=== PATIENT | female | born 1965 | race Hispanic/Latino ===

== ENCOUNTER 2022-12-20 09:53 | Day surgery (SDC) | payer OTHER ==
[~2022-12-20] VITALS: Ht 162.6 cm; Wt 74.1 kg
[2022-12-20] VITALS (9 sets, daily range): BP systolic 86–133; BP diastolic 61–99
[~2022-12-20 09:53] MED LIST: MULT-1250 PO
[2022-12-20] MEDS ORDERED: 0.9%NACL 1000ML 1,000 ML IV ONE (10:18)
[2022-12-20 11:10] LABS: HEMATOCRIT 46.1 % (36-48); MEAN CORPUSCULAR HGB CONC 32.3 g/dL (32.0-36.0); MEAN CORPUSCULAR VOLUME 89.7 fL (79-99); PLATELET COUNT (AUTO) 253 K/uL (130-400); RED BLOOD CELL COUNT(AUTO) 5.14 MIL/uL (4.00-5.50); WHITE BLOOD COUNT (AUTO) 6.2 K/uL (4.8-10.8)
[2022-12-20 11:19] LABS: CREATININE 0.7 mg/dL (0.5-1.5); POTASSIUM 3.7 mmol/L (3.5-5.1)
[2022-12-20 11:20] LABS: INR 0.94 (0.85-1.15); PROTHROMBIN TIME 10.3 SEC (9.6-11.6)
[2022-12-20 11:21] LABS: PARTIAL THROMBOPLASTIN TIME 27.3 SEC (26.3-35.5)
[2022-12-20 11:28] LABS: LYMPHOCYTES % (MANUAL) 28 % (22-44); MAN.DIFF COMMENT-IMPRESSION MANUAL DIFFERENTIAL; MONOCYTES % (MANUAL) 7 % (2-9); PLATELET MORPHOLOGY COMMENT ADEQUATE; SEGMENTED NEUTROPHILS % 65 % (40-70)
[2022-12-20] MEDS ORDERED: IOHEXOL-350 50ML VIAL IV ONE (12:29)
[2022-12-20] MEDS ORDERED: FENTANYL CITRATE PF 50 MCG/1 ML 2ML VIAL ONE (12:47)
[2022-12-20] MEDS ORDERED: PROPOFOL 10 MG/ML 20ML VIAL IV ONE ×2 (12:47→13:38)
[2022-12-20] MEDS ORDERED: ROCURONIUM 10MG/1ML SYR 10 MG/ML ML ONE (12:48)
[2022-12-20] MEDS ORDERED: SUCCINYLCHOLINE 200MG/10ML SYR ONE (12:48)
== END 2022-12-20 17:14 | disposition home or self-care (01) ==
LOC: ENDO 09:53 → DAH 09:53 → ENDO 17:14
PROVIDERS: ATTEND Internal Medicine Gastroenterology
DX: K91.89 Other postprocedural complications and disorders of digestive system (principal); Z46.59 Encounter for fitting and adjustment of other gastrointestinal appliance and device; Z20.822 Contact with and (suspected) exposure to COVID-19; K83.8 Other specified diseases of biliary tract; K76.89 Other specified diseases of liver; Z98.890 Other specified postprocedural states; Z98.891 History of uterine scar from previous surgery; Z90.710 Acquired absence of both cervix and uterus; Z83.438 Family history of other disorder of lipoprotein metabolism and other lipidemia; Z80.1 Family history of malignant neoplasm of trachea, bronchus and lung; Z80.0 Family history of malignant neoplasm of digestive organs; Z79.01 Long term (current) use of anticoagulants; Z82.49 Family history of ischemic heart disease and other diseases of the circulatory system; Z79.899 Other long term (current) drug therapy; Z86.16 Personal history of COVID-19; Z87.19 Personal history of other diseases of the digestive system
CPT/HCPCS: 87635; 43264; 80048; 85025; 85610; 85730; 36415; 74328; 43275; C9803; J3010; J0330; J7030 ×2; J2704 ×2; Q9967; A4620; A4215 ×2; A4223; A4657; A7002; A4222; A4221; A4663; A4216; A4606; C1769; C1773; 74330

== ENCOUNTER 2023-02-28 07:52 | Day surgery (SDC) | payer OTHER ==
[~2023-02-28] VITALS: Ht 162.6 cm; Wt 70.3 kg
[2023-02-28 11:00] VITALS: BP 141/95
[2023-02-28] MEDS ORDERED: PROPOFOL 10 MG/ML 20ML VIAL IV ONE (12:47)
[2023-02-28] MEDS ORDERED: PANT40GR PO (13:20)
[2023-02-28 13:27] VITALS: BP 120/77
[2023-02-28 13:35] VITALS: BP 121/73
[2023-02-28 13:45] VITALS: BP 139/79
== END 2023-02-28 13:50 | disposition home or self-care (01) ==
LOC: DAH 07:52 → ENDO 07:52
PROVIDERS: ATTEND Internal Medicine Gastroenterology
DX: K21.00 Gastro-esophageal reflux disease with esophagitis, without bleeding (principal); Z20.822 Contact with and (suspected) exposure to COVID-19; K29.00 Acute gastritis without bleeding; K44.9 Diaphragmatic hernia without obstruction or gangrene; Z98.891 History of uterine scar from previous surgery; Z87.11 Personal history of peptic ulcer disease; Z98.890 Other specified postprocedural states; Z90.721 Acquired absence of ovaries, unilateral; Z82.49 Family history of ischemic heart disease and other diseases of the circulatory system; Z80.0 Family history of malignant neoplasm of digestive organs; Z80.1 Family history of malignant neoplasm of trachea, bronchus and lung; Z83.438 Family history of other disorder of lipoprotein metabolism and other lipidemia; Z79.899 Other long term (current) drug therapy
CPT/HCPCS: 87426; 43239; J2704; A4620; A4215 ×2; A4223; A4657 ×2; A4222; A4221; A4663; A4216; A4606